=== PATIENT | female | born 1945 | race Caucasian/White ===

== ENCOUNTER 2016-06-06 08:27 | Outpatient (CLI) | payer MEDICARE, OTHER ==
[2016-06-06 09:37] LABS: Cardiac Risk 3.4 (Less than 4.5)
== END 2016-06-06 08:28 ==
LOC: NAVSJIPCSP 08:27 → NAV LAB 08:28
PROVIDERS: ATTEND Internal Medicine
DX: Z51.81 Encounter for therapeutic drug level monitoring (principal); Z79.899 Other long term (current) drug therapy
CPT/HCPCS: 36415; 80061

== ENCOUNTER 2016-09-05 08:48 | Outpatient (CLI) | payer MEDICARE, OTHER ==
[2016-09-05 10:06] LABS: Anion Gap 14 mmol/L (10-20); BUN (Urea Nitrogen) 14 mg/dL (9.8-20.1); Calc. Creatinine Clearance 0 mL/min (70-130); Calcium 9.7 mg/dL (7.8-10.44); Carbon Dioxide 27 mmol/L (23-31); Cardiac Risk 3.4 (Less than 4.5); Chloride 104 mmol/L (98-107); Cholesterol 180 mg/dl (< 200 Desired); Estimated GFR-MDRD 64; Glucose 96 mg/dL (80-115); HDL Cholesterol 53 mg/dL (>60 Neg Risk); LDL Cholesterol, Calculated 93 mg/dL; Potassium 3.7 mmol/L (3.5-5.1); Sodium 141 mmol/L (136-145); Triglycerides 171 mg/dL (Less than 150)
== END 2016-09-05 08:49 | disposition home or self-care (01) ==
LOC: NAV LAB 08:48
PROVIDERS: ATTEND Internal Medicine
DX: E78.5 Hyperlipidemia, unspecified (principal); Z79.899 Other long term (current) drug therapy
CPT/HCPCS: 36415; 80048; 80061

== ENCOUNTER 2016-12-11 09:26 | Outpatient (CLI) | payer MEDICARE, OTHER ==
[2016-12-11 09:49] LABS: Bilirubin Negative (Negative); Blood, Urine Trace (Negative); Clarity Clear (Clear); Glucose, Urine (Dipstick) Negative (Negative); Leukocyte Trace (Negative); Nitrite Negative (Negative); Protein, Urine (Dipstick) Negative (Neg-Trace); Specific Gravity, Urine 1.015 (1.005-1.030); Urobilinogen 0.2 mg/dL (0.2-1.0)
[2016-12-11 09:54] LABS: #Basophils 0.1 thou/uL (0.0-0.2); #Eosinphils 0.6 thou/uL (0.0-0.7); #Lymphocytes 2.8 thou/uL (1.20-3.40); #Monocytes 0.8 thou/uL (0.11-0.59); #Neutrophils 3.8 thou/uL (1.40-6.50); %Basophils 1.6 % (0.0-1.0); %Eosinophils 7.1 % (0.0-10.0); %Lymphocytes 34.3 % (21.0-51.0); %Monocytes 10.2 % (0.0-10.0); %Neutrophils 46.8 % (42.0-75.0); Hemoglobin 13.8 g/dL (12.0-16.0); Mean Corpuscular Hemoglobin 30.9 pg (27.0-31.0); Mean Corpuscular Volume 93.7 fl (81.0-99.0); Mean Platelet Volume 6.3 fL (7.4-10.4); Platelet Count 314 thou/uL (130-400); RBC Distribution Width 11.7 % (11.5-14.5); Red Blood Cell (RBC) Count 4.48 mill/uL (4.20-5.40); White Blood Cell (WBC) Count 8.2 thou/uL (4.8-10.8)
[2016-12-11 10:28] LABS: ALT (SGPT) 17 U/L (8-55); AST (SGOT) 18 U/L (5-34); Alkaline Phosphatase 50 U/L (40-150); Anion Gap 15 mmol/L (10-20); BUN (Urea Nitrogen) 15 mg/dL (9.8-20.1); Bilirubin, Total 0.5 mg/dL (0.2-1.2); Calc. Creatinine Clearance 0 mL/min (70-130); Calcium 9.8 mg/dL (7.8-10.44); Carbon Dioxide 26 mmol/L (23-31); Cardiac Risk 2.6 (Less than 4.5); Chloride 101 mmol/L (98-107); Cholesterol 173 mg/dl (< 200 Desired); Estimated GFR-MDRD 64; Globulin 2.6 g/dL (2.4-3.5); Glucose 87 mg/dL (83-110); HDL Cholesterol 67 mg/dL (>60 Neg Risk); LDL Cholesterol, Calculated 83 mg/dL; Potassium 3.7 mmol/L (3.5-5.1); Protein, Total 6.6 g/dL (6.0-8.3); Sodium 138 mmol/L (136-145); Triglycerides 113 mg/dL (Less than 150)
[2016-12-11 10:51] LABS: Bacteria/HPF Rare-Few HPF (None Seen); Other Microscopic Description NO; RBC/HPF 0-3 HPF (0-3); Squamous Epithelial 0-3 HPF (0-3); WBC/HPF 0-3 HPF (0-3)
== END 2016-12-11 09:27 | disposition home or self-care (01) ==
LOC: NAVSJIPCSP 09:26 → NAV LAB 09:27
PROVIDERS: ATTEND Internal Medicine
DX: I11.9 Hypertensive heart disease without heart failure (principal); E78.5 Hyperlipidemia, unspecified; M54.5 Low back pain
CPT/HCPCS: 36415; 80053; 80061; 81003; 81015; 85025

== ENCOUNTER 2018-10-02 13:53 | Outpatient (CLI) | payer MEDICARE, OTHER ==
--- NOTE | 2018-10-02 14:48 | RAD ---
THREE VIEWS OF THE LEFT SHOULDER: 10/02/18 COMPARISON: None. HISTORY: Left shoulder pain. FINDINGS: Three views of the left shoulder shows no evidence of acute fracture or dislocation. Moderate to adarsh re joint space narrowing and osteophyte formation seen in the glenohumeral and acromioclavicular join ts. The visualized left thorax is unremarkable. 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 POS: OFF
== END 2018-10-02 13:54 | disposition home or self-care (01) ==
LOC: NAV RAD 13:53
PROVIDERS: ATTEND Orthopaedic Surgery
DX: M25.512 Pain in left shoulder (principal); M19.012 Primary osteoarthritis, left shoulder

== ENCOUNTER 2019-02-07 13:46 | Outpatient (CLI) | payer MEDICARE, OTHER ==
[~2019-02-07 13:46] MED LIST: Iopamidol 370 76% 100 ML VIAL ONE
--- NOTE | 2019-02-07 15:12 | CT ---
CT angiogram of the abdomen: 02/07/2019 COMPARISON: CT abdomen and pelvis 02/17/2016 HISTORY: Abdominal aortic aneurysm without rupture, reevaluate aneurysm TECHNIQUE: Axial CT imaging at 2.5 mm intervals from lung bases through mid sacrum with IV contrast u [facility] CT angiogram protocol. Coronal and sagittal 3-D reformatted imaging obtained. FINDINGS: Imaged lung bases are unremarkable. Incompletely imaged pectus excavatum deformity noted. The imaged descending thoracic aorta demonstrates scattered partially calcified plaque. 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 The spleen, liver, gallbladder, pancreas, and adrenal glands demonstrate no acute findings. Multiple bilateral renal cysts are noted, more numerous and larger on the left than on the right, [place] suring up to 4.4 cm in transverse dimension. Limited assessment of the visualized bowel is grossly unremarkable. Bowel within the pelvis is not im aged. There is a small fat-containing umbilical hernia. There is mild stenosis at the origin of the celiac axis. Superior mesenteric artery and inferior mese nteric artery are patent as are bilateral renal arteries. There is no hemodynamically significant stenosis involving the branches of the abdominal aorta. There is extensive atherosclerotic calcification involving the bilateral common iliac arteries as wel l as the imaged portions of bilateral internal and external iliac arteries. There is multifocal aneurysmal dilatation of the infrarenal abdominal aorta. Abdominal aorta measures up to 4.4 x 4.4 cm in AP/transverse dimension approximately 4-5 cm below the axial level of the renal artery ostia. The abdominal aorta was aneurysmal in this region on the prior examination, previ ously measuring approximately 4.0 x 3.8 cm. Inferior to this a second area of aneurysmal dilatation of the infrarenal abdominal aorta measuring 3.9 x 3.9 cm is noted on axial image 103, slightly enlarg ed when compared to the prior study at which time it measured 3.7 x 3.6 cm. No evidence for dissection of the abdominal aorta. No lymphadenopathy is noted within the abdomen. Review of the osseous structures reveals no worrisome lytic or blastic lesions. IMPRESSION: 1. Multifocal aneurysmal dilatation of the infrarenal abdominal aorta measuring up to 4.4 x 4.4 cm, l arger than on the prior examination as detailed above. 2. Findings suggesting a penetrating atheromatous ulcer within the medial aspect of the distal thorac ic aorta. Reported By: Edison Youssefally Signed: 02/07/2019 3:09 PM
== END 2019-02-07 13:47 | disposition home or self-care (01) ==
LOC: NAV CT 13:46
PROVIDERS: ATTEND Thoracic Surgery (Cardiothoracic Vascular Surgery)
DX: I71.4 Abdominal aortic aneurysm, without rupture (principal)
CPT/HCPCS: 74175; Q9967

== ENCOUNTER 2020-01-15 11:04 | Outpatient (CLI) | payer MEDICARE, OTHER ==
--- NOTE | 2020-01-15 13:19 | CT ---
CTA ABDOMEN AND PELVIS WITH AND WITHOUT IV CONTRAST: INDICATIONS: History of abdominal aortic aneurysm without rupture TECHNIQUE: Multiple CTA images were obtained of the abdomen and pelvis utilizing IV contrast and 3D reformatted imaging. Noncontrast CT images were obtained of the abdomen and pelvis. Axial, coronal and sagittal reformatted images were constructed from the raw data. COMPARISON: Prior CT the abdomen dated February 07, 2019 FINDINGS: ABDOMEN: Lung bases: Clear Liver: No focal lesion. Gallbladder: Normal appearing. Pancreas: Normal. Adrenal glands: Normal. Spleen: Normal. Kidneys and ureters: There are bilateral renal cysts. Lymph nodes:No lymphadenopathy. Free fluid in abdomen:No free fluid is evident. PELVIS: Small and large bowel: There is slight mucosal enhancement and mild wall thickening involving the col on. There is fluid density filling the lumen of the ascending colon, transverse colon and splenic flexure. A few scattered diverticula involving the colon. Appendix:Not visualized Bladder: Normal. Rectal and perirectal soft tissues:Normal. Reproductive structures: Surgically absent Free fluid in pelvis: No free fluid is evident. Lymphadenopathy pelvis: No lymphadenopathy is evident. Osseous structures: No acute osseous abnormality. No destructive osteolytic or osteoblastic lesion i s identified. There is scattered degenerative and osteoarthritic changes. Soft tissues:Normal. VASCULATURE: Aorta: The infrarenal abdominal aortic aneurysm on image 127 of series 2 now measures 4.7 x 4.5 cm we re previously it measured 4.4 x 4.4 cm. The additional bilobed component involving the lower distal abdominal aorta now measures 3.8 x 3.6 cm were previously it measured 3.8 x 3.8 cm. Celiac:Normal in caliber without evidence of stenosis or occlusion. SMA:Normal in caliber without evidence of stenosis or occlusion. Renal arteries:Normal in caliber without evidence of stenosis or occlusion. [place]:Normal in caliber without evidence of stenosis or occlusion. Right common iliac artery: There is mild aneurysmal dilatation measuring 1.4 cm that is stable. There is moderate atherosclerotic irregularity involving the lumen of the right common iliac artery. Right external iliac artery: Normal in caliber without evidence of stenosis or occlusion. Right internal iliac artery: Normal in caliber without evidence of stenosis or occlusion. Left common iliac artery: There is mild aneurysmal dilatation of the left common iliac artery measuri ng 1.3 cm which is stable to the prior exam. There is mild atherosclerotic irregularity of the left common iliac artery. Cm Left external iliac artery: Normal in caliber without evidence of stenosis or occlusion.. Left internal iliac artery: Normal in caliber without evidence of stenosis or occlusion. Right common femoral artery: There is 50% luminal caliber narrowing involving the right common arter y Left common femoral artery: Normal in caliber without evidence of stenosis or occlusion. Additional findings: None. IMPRESSION: 1. Slight interval enlargement of the bilobed infrarenal abdominal aortic aneurysm. The proximal aneu rysmal segment is enlarged from the prior exam now measuring 4.7 x 4.5 cm were previously measured 4.4 x 4.4 cm. The distal abdominal aortic aneurysm now measures 3.8 x 3.67 m, stable to the prior exa m. 2. Nonspecific wall thickening and mucosal enhancement of the colon is suspicious for colitis. Recomm end correlation with the clinical exam. 3. 50% luminal caliber narrowing involving the lumen of the right common femoral artery.
== END 2020-01-15 11:05 | disposition home or self-care (01) ==
LOC: NAV CT 11:04
PROVIDERS: ATTEND Thoracic Surgery (Cardiothoracic Vascular Surgery)
DX: I71.4 Abdominal aortic aneurysm, without rupture (principal); K63.89 Other specified diseases of intestine; I70.201 Unspecified atherosclerosis of native arteries of extremities, right leg
CPT/HCPCS: 36415; 74174; 82565; Q9967

== ENCOUNTER 2020-05-19 14:24 | Outpatient (CLI) | payer MEDICARE, OTHER ==
--- NOTE | 2020-05-19 16:33 | CT ---
CT Abdomen Pelvis WO Con: 05/19/2020 2:30 PM HISTORY: Abdominal aortic aneurysm COMPARISON: 01/15/2020, 02/07/2019, 02/17/2016 TECHNIQUE: Multiple contiguous axial images were obtained and a CT of the abdomen and pelvis without IV contrast . Coronal and sagittal reformats were performed. FINDINGS: This examination is limited for the evaluation of solid organs and vascular structures due to the lac k of intravenous contrast. Lower Chest: Calcified granuloma in the left lung base. Abdomen: Liver: within normal limits. Bile Ducts: Normal caliber. Gallbladder: No calcified gallstones. Normal caliber wall. Pancreas: within normal limits. Spleen: within normal limits. Adrenals: within normal limits. Kidneys: Bilateral cysts measuring up to 4.6 cm in size. Pelvis: Reproductive Organs: Status post hysterectomy. Ureters: within normal limits. Bladder: within normal limits. Bowel: Normal caliber. Scattered diverticula in the colon. Mesenteric Lymph Nodes: No enlarged mesenteric lymph nodes. Peritoneum: No ascites or free air, no fluid collection. Vessels: There is aneurysmal dilatation of the infrarenal aorta which measures 4.6 cm in greatest dim ension. This is stable compared to the most recent exam but has enlarged compared to the exam from 2016. Retroperitoneum: within normal limits. Abdominal Wall: within normal limits. Bones: Degenerative changes in the spine. IMPRESSION: 1. There is aneurysmal dilatation of infrarenal aorta. This is stable compared to most recent exam bu t has enlarged when compared to the exams dating back to 2016. 2. Bilateral renal cysts 3. Diverticulosis
== END 2020-05-19 14:25 | disposition home or self-care (01) ==
LOC: NAV CT 14:24
PROVIDERS: ATTEND Thoracic Surgery (Cardiothoracic Vascular Surgery)
DX: I71.4 Abdominal aortic aneurysm, without rupture (principal); N28.1 Cyst of kidney, acquired; K57.30 Diverticulosis of large intestine without perforation or abscess without bleeding
CPT/HCPCS: 74176

== ENCOUNTER 2021-06-01 10:49 | Outpatient (CLI) | payer MEDICARE, OTHER | END 2021-06-01 10:50 | disposition home or self-care (01) | LOC: NAV CT 10:49 | PROVIDERS: ATTEND Thoracic Surgery (Cardiothoracic Vascular Surgery) | DX: I71.4 Abdominal aortic aneurysm, without rupture (principal) | CPT/HCPCS: 71275; 74174; Q9967 ==

== ENCOUNTER 2021-08-12 10:09 | Outpatient (CLI) | payer MEDICARE, OTHER | END 2021-08-12 10:10 | disposition home or self-care (01) | LOC: NAV RAD 10:09 | PROVIDERS: ATTEND Family Medicine | DX: M54.2 Cervicalgia (principal); G62.9 Polyneuropathy, unspecified; M50.322 Other cervical disc degeneration at C5-C6 level | CPT/HCPCS: 72040 ==

== ENCOUNTER 2021-10-21 10:24 | Outpatient (CLI) | payer MEDICARE, OTHER | END 2021-10-21 10:25 | disposition home or self-care (01) | LOC: NAV CT 10:24 | PROVIDERS: ATTEND Family Medicine | DX: I71.4 Abdominal aortic aneurysm, without rupture (principal); M47.812 Spondylosis without myelopathy or radiculopathy, cervical region; M47.814 Spondylosis without myelopathy or radiculopathy, thoracic region; J32.9 Chronic sinusitis, unspecified; I70.90 Unspecified atherosclerosis; N28.1 Cyst of kidney, acquired; K57.30 Diverticulosis of large intestine without perforation or abscess without bleeding; Z90.710 Acquired absence of both cervix and uterus | CPT/HCPCS: 72125; 74177 ==